=== PATIENT | female | born 1980 ===

== ENCOUNTER 2025-01-26 05:30 | Day surgery (SDC) | payer OTHER ==
[2025-01-25 12:07] VITALS: BP 122/77
[2025-01-25 12:26] LABS: BASO % 0.4 % (0.1-1.2); EOS # 0.08 (0.04-0.54); EOS % 1.5 % (0.7-7.0); LYMPH # 1.95 (1.18-3.74); LYMPH % 36.2 % (19.3-53.1); MEAN PLATELET VOLUME 10.00 fl (9.4-12.4); MONO # 0.34 (0.24-0.82); MONO % 6.3 % (4.7-12.5); NEUT # 2.98 (1.56-6.13); NEUT % 55.4 % (34.0-71.1); RED CELL DISTRIBUTION WIDTH 12.6 % (11.6-14.4)
[2025-01-25 12:42] LABS: URINE APPEARANCE Clear; URINE BILIRRUBIN Negative (NEGATIVE); URINE BLOOD Moderate; URINE COLOR Yellow; URINE GLUCOSE Negative (NEGATIVE); URINE KETONE Negative (NEGATIVE); URINE LEUKOCYTE Negative; URINE NITRATE Negative; URINE PROTEIN Negative (NEGATIVE); URINE UROBILINOGEN 0.2 E.U./dl
[2025-01-25 12:46] LABS: URINE BACTERIA 5803.5 uL (0.0-1933); URINE EPITHELIAL CELLS 81.7 uL (0.0-38.8); URINE RBC 48.4 uL (0.0-20.8); URINE WBC 31.5 uL (0.0-23.2)
[2025-01-25 12:56] LABS: URINE CAST 0.28 uL (0.0-1.40)
[2025-01-25 13:03] LABS: INR 1.0
[2025-01-25 13:32] LABS: ALT/SGPT 20.0 U/L (12-78); AST/SGOT 10.0 U/L (15-37); BILIRUBIN TOTAL 0.62 mg/dL (0.3-1.2); BUN CREA RATIO 20.0 (7.0-25.0); CREATININE SERUM 0.69 mg/dL (0.55-1.02); GFR 91.59; GLOBULINA 3.4 G/DL (2.4-3.5); GLUCOSE FASTING 87.0 mg/dL (65-100); OSMOLALITY SERUM 279.0 MOSM/KG (275-295)
[~2025-01-26] VITALS: Ht 160 cm; Wt 86.2 kg
[~2025-01-26 05:30] MED LIST: CLARITIN10 M1 PO; MULTI VITAMIN1 EACH PO; SINGULAIR10 MG PO
[2025-01-26] MEDS ORDERED: METRONIDAZOLE/SODIUM CHLORIDE 500 MG/100 ML PIGGYBACK IV ONE (06:43)
[2025-01-26] MEDS ORDERED: LIDOCAINE HCL 1%/EPINEPHRINE 20ML VIAL IJ ONE (07:15)
[2025-01-26] MEDS ORDERED: HEMOSTATIC MATRIX 1 KIT KIT TOP ONE (07:15)
[2025-01-26] MEDS ORDERED: DIBUCAINE 30 GM TUBE ONE (07:15)
[2025-01-26] MEDS ORDERED: POVIDONE-IODINE 118 ML BOTT TOP ONE (07:15)
[2025-01-26] MEDS ORDERED: BUPIVACAINE HCL/MPF 0.5% 30ML VIAL ONE (07:15)
[2025-01-26] MEDS ORDERED: TRIAMCINOLONE ACETONIDE 40 MG/ML VIAL ONE ×3 (08:13→09:05)
== END 2025-01-26 14:15 | disposition home or self-care (01) ==
LOC: CIR.AMB 05:30
PROVIDERS: ATTEND Colon & Rectal Surgery
DX: K64.3 Fourth degree hemorrhoids (principal); K64.4 Residual hemorrhoidal skin tags; K62.3 Rectal prolapse